=== PATIENT | female | born 1990 | race African-American/Black ===

== ENCOUNTER 2022-07-13 12:48 | Emergency (ER) | payer OTHER ==
[~2022-07-13] VITALS: Ht 165.1 cm; Wt 82.0 kg
[2022-07-13 12:53] VITALS: BP 116/72
[2022-07-13] MEDS ORDERED: albuterol (12:53)
== END 2022-07-13 14:17 | disposition left against medical advice (07) ==
LOC: ER 12:48
DX: R00.0 Tachycardia, unspecified (principal); V47.5XXA Car driver injured in collision with fixed or stationary object in traffic accident, initial encounter; Y93.84 Activity, sleeping; Y92.488 Other paved roadways as the place of occurrence of the external cause
CPT/HCPCS: 99283